=== PATIENT | female | born 1995 | race American Indian/Alaskan Native ===

== ENCOUNTER 2016-08-11 12:37 | Emergency (ER) | payer OTHER ==
--- NOTE | 2016-08-11 13:11 | Emergency Department Report ---
Chief Complaint: Abdominal Pain Stated Complaint: N/V CHEST PAIN/ Time Seen by Provider: 08/11/16 13:10 - ROS Review of Systems: As noted in HPI - Exam Vital Signs: Vital Signs 08/11/16 12:42 Temperature 98.7 F Pulse Rate 91 H Respiratory 16 Rate Blood Pressure 128/89 O2 Sat by Pulse 100 Oximetry MSE screening note: Focused history and physical exam performed. Due to findings the following was ordered: ED Medical Decision Making - Lab Data Result diagrams: 08/11/16 13:15 08/11/16 13:15 ED Disposition for MSE Condition: Stable Instructions: Abdominal Pain (ED)
[2016-08-11 13:34] LABS: Basophils % (Auto) 0.1 % (0.0-1.8); Eosinophils % (Auto) 0.6 % (0.0-4.3); Hematocrit 38.5 % (30.3-42.9); Hemoglobin 12.5 gm/dl (10.1-14.3); Mean Corpuscular HGB Conc 33 % (30-34); Mean Corpuscular Hemoglobin 28 pg (28-32); Mean Corpuscular Volume 85 fl (79-97); Platelet Count 378 K/mm3 (140-440); Red Blood Count 4.52 M/mm3 (3.65-5.03); Red Cell Distribution Width 16.3 % (13.2-15.2); White Blood Count 10.7 K/mm3 (4.5-11.0)
[2016-08-11 13:47] LABS: Alanine Aminotransferase 31 units/L (7-56); Albumin 4.5 g/dL (3.9-5); Albumin/Globulin Ratio 1.5 %; Alkaline Phosphatase 54 units/L (35-129); Anion Gap 17 mmol/L; Bilirubin,Total 0.2 mg/dL (0.1-1.2); Blood Urea Nitrogen 8 mg/dL (7-17); Calcium 8.8 mg/dL (8.4-10.2); Carbon Dioxide 26 mmol/L (22-30); Chloride 97.6 mmol/L (98-107); Glucose 95 mg/dL (65-100); Lipase 17 units/L (13-60); Potassium 3.7 mmol/L (3.6-5.0); Sodium 137 mmol/L (137-145); Total Protein 7.5 g/dL (6.3-8.2)
[2016-08-11 14:16] LABS: Bilirubin,Urine NEG (Negative); Blood,Urine NEG (Negative); Ketones,Urine NEG (Negative); Leukocyte Esterase,Urine NEG (Negative); Mucus,Urine FEW /HPF; Nitrite,Urine NEG (Negative); Protein,Urine <15 mg/dL mg/dL (Negative); Urobilinogen,Urine < 2.0 mg/dL (<2.0)
[2016-08-11 17:45] VITALS: BP 134/94
[2016-08-11] MEDS ORDERED: ZOFRAN ODT PO ONE (18:30)
[2016-08-11] MEDS ORDERED: MOTRIN PO ONE (18:33)
--- NOTE | 2016-08-11 18:34 | Emergency Department Report ---
Chief Complaint: Abdominal Pain Stated Complaint: N/V CHEST PAIN/ Time Seen by Provider: 08/11/16 18:29 - HPI History of Present Illness: Patient is a 21-year-old female who presents for nausea and vomiting after taking oxycodone early this morning at 7 AM. Patient states she ate before taking the medication. Patient states she had about 2 episodes of vomiting. She says she has intermittent abdominal throbbing. Patient denies fevers/chills/chest pains or shortness of breath/dyspnea/ headaches. - ROS Review of Systems: As noted in HPI - Exam Vital Signs: Vital Signs 08/11/16 08/11/16 12:42 17:43 Temperature 98.7 F 99.2 F Pulse Rate 91 H 123 H Respiratory 16 18 Rate Blood Pressure 128/89 Blood Pressure 134/94 [Left] O2 Sat by Pulse 100 100 Oximetry Physical Exam: GENERAL: Alert and oriented x3, no apparent distress, Normal Gait, atraumatic. HEAD: Head is normocephalic and a-traumatic. NECK: Supple. Non edematous, No carotid bruits. No lymphadenopathy or thyromegaly. LUNGS: Symetrical with respiration, No wheezing, no rales or crackles, CTAB. HEART: S1, S2 present, regular rate and rhythm without murmur, no rubs, no gallops. ABDOMEN: No organomegaly was noted,Positive bowel sounds, soft, and non- distended. . Nontender to palpation on all Quadrants, NO CVA tenderness. MSE screening note: Focused history and physical exam performed. Due to findings the following was ordered: ED Medical Decision Making - Lab Data Result diagrams: 08/11/16 13:15 08/11/16 13:15 - Medical Decision Making Patient alert and oriented 3. Vital signs stable. Patient is in no rest or acute distress. Exam normal. All labs within normal limits. Discussed case with MEDINA Scott patient will be seen over at [facility] for nausea and Motrin ordered for pain. ED Disposition for MSE Condition: Stable Instructions: Abdominal Pain (ED)
--- NOTE | 2016-08-16 13:53 | ED Elopement Review ---
ED Pt Elopement review - Results review Lab results: Laboratory Tests 08/11/16 08/11/16 08/11/16 13:15 13:15 13:15 WBC 10.7 RBC 4.52 Hgb 12.5 Hct 38.5 MCV 85 MCH 28 MCHC 33 RDW 16.3 H Plt Count 378 Lymph % (Auto) 10.3 L [place] % (Auto) 5.6 Eos % (Auto) 0.6 Baso % (Auto) 0.1 Lymph # 1.1 L [place] # 0.6 Eos # 0.1 Baso # 0.0 Seg Neutrophils % 83.4 H Seg Neutrophils # 8.9 H Sodium 137 Potassium 3.7 Chloride 97.6 L Carbon Dioxide 26 Anion Gap 17 BUN 8 Creatinine 0.4 L Estimated GFR > 60 BUN/Creatinine Ratio 20.00 Glucose 95 Calcium 8.8 Total Bilirubin 0.2 AST 33 ALT 31 Alkaline Phosphatase 54 Total Protein 7.5 Albumin 4.5 Albumin/Globulin Ratio 1.5 Amylase Lipase 17 HCG, Qual Negative Urine Color Urine Turbidity Urine pH Ur Specific [place] Urine Protein Urine Glucose (UA) Urine Ketones Urine Blood Urine Nitrite Urine Bilirubin Urine Urobilinogen Ur Leukocyte Esterase Urine WBC (Auto) Urine RBC (Auto) U Epithel Cells (Auto) Urine Mucus 08/11/16 08/11/16 13:15 Unknown WBC RBC Hgb Hct MCV MCH MCHC RDW Plt Count Lymph % (Auto) [place] % (Auto) Eos % (Auto) Baso % (Auto) Lymph # [place] # Eos # Baso # Seg Neutrophils % Seg Neutrophils # Sodium Potassium Chloride Carbon Dioxide Anion Gap BUN Creatinine Estimated GFR BUN/Creatinine Ratio Glucose Calcium Total Bilirubin AST ALT Alkaline Phosphatase Total Protein Albumin Albumin/Globulin Ratio Amylase 61 Lipase HCG, Qual Urine Color Yellow Urine Turbidity Clear Urine pH 7.0 Ur Specific [place] 1.021 Urine Protein <15 mg/dl Urine Glucose (UA) Neg Urine Ketones Neg Urine Blood Neg Urine Nitrite Neg Urine Bilirubin Neg Urine Urobilinogen < 2.0 Ur Leukocyte Esterase Neg Urine WBC (Auto) 2.0 Urine RBC (Auto) 1.0 U Epithel Cells (Auto) 2.0 Urine Mucus Few - Call Back decision Pt Call Back Decision: No action required
== END 2016-08-11 20:21 | disposition left against medical advice (07) ==
LOC: ED 12:37
DX: R11.2 Nausea with vomiting, unspecified (principal); R10.9 Unspecified abdominal pain; Z53.21 Procedure and treatment not carried out due to patient leaving prior to being seen by health care provider
CPT/HCPCS: 36415; 80053; 81001; 82150; 83690; 84703; 85025; Q0162

== ENCOUNTER 2017-04-30 10:37 | Emergency (ER) | payer OTHER ==
[2017-04-30 10:46] VITALS: BP 139/85
[2017-04-30 11:19] LABS: Basophils % (Auto) 0.2 % (0.0-1.8); Eosinophils % (Auto) 0.7 % (0.0-4.3); Hematocrit 38.1 % (30.3-42.9); Hemoglobin 12.3 gm/dl (10.1-14.3); Mean Corpuscular HGB Conc 32 % (30-34); Mean Corpuscular Hemoglobin 28 pg (28-32); Mean Corpuscular Volume 88 fl (79-97); Platelet Count 355 K/mm3 (140-440); Red Blood Count 4.33 M/mm3 (3.65-5.03); Red Cell Distribution Width 17.3 % (13.2-15.2); White Blood Count 7.7 K/mm3 (4.5-11.0)
[2017-04-30 12:37] LABS: Bacteria,Urine 1+ /HPF (Negative); Bilirubin,Urine NEG (Negative); Blood,Urine LG (Negative); Ketones,Urine NEG (Negative); Leukocyte Esterase,Urine MOD (Negative); Mucus,Urine 2+ /HPF; Nitrite,Urine NEG (Negative); Urobilinogen,Urine < 2.0 mg/dL (<2.0)
[2017-04-30 12:39] LABS: RBC,Urine > 182.0 /HPF (0.0-6.0); WBC,Urine > 182.0 /HPF (0.0-6.0)
== END 2017-04-30 20:55 | disposition left against medical advice (07) ==
LOC: ED 10:37
DX: O20.9 Hemorrhage in early pregnancy, unspecified (principal); Z3A.00 Weeks of gestation of pregnancy not specified; Z53.21 Procedure and treatment not carried out due to patient leaving prior to being seen by health care provider
CPT/HCPCS: 36415; 81001; 81025; 85025

== ENCOUNTER 2017-08-10 01:19 | Emergency (ER) | payer SELFPAY ==
[2017-08-10] MEDS ORDERED: ASPIRIN PO ONE (02:02)
[2017-08-10 02:31] LABS: Basophils % (Auto) 0.2 % (0.0-1.8); Eosinophils % (Auto) 0.2 % (0.0-4.3); Hematocrit 38.8 % (30.3-42.9); Hemoglobin 12.6 gm/dl (10.1-14.3); Lymphocytes # (Auto) 1.5 K/mm3 (1.2-5.4); Lymphocytes % (Auto) 18.2 % (13.4-35.0); Mean Corpuscular HGB Conc 33 % (30-34); Mean Corpuscular Hemoglobin 29 pg (28-32); Mean Corpuscular Volume 90 fl (79-97); Monocytes # (Auto) 0.3 K/mm3 (0.0-0.8); Monocytes % (Auto) 3.3 % (0.0-7.3); Platelet Count 399 K/mm3 (140-440); Red Cell Distribution Width 15.1 % (13.2-15.2)
[2017-08-10 02:49] LABS: BUN/Creatinine Ratio 14; Blood Urea Nitrogen 7 mg/dL (7-17); Calcium 9.7 mg/dL (8.4-10.2); Hemolysis Index 1
--- NOTE | 2017-08-10 08:33 | Emergency Department Report ---
HPI - General Chief Complaint: Chest Pain Time Seen by Provider: 08/10/17 08:17 - HPI HPI: Room 17 The patient is a 22-year-old female presenting with complaints of chest pain hematemesis and headache. The patient states her symptoms began last night at 18:00 with hematemesis, left chest pain, tachycardia and headache. Patient states her last bowel movement occurred approximately one week ago. Patient denies bright red blood per rectum or melena. Patient denies abdominal pain. Patient states her left chest pain has been constant and felt sharp in nature. However, patient currently denies chest pain. Patient does admit to dizziness. She denies dysuria or hematuria. Patient denies vaginal discharge. Patient cannot recall when last month she had her menses Location: [See above] Duration: [See above] Quality: Sharp Severity: Moderate Modifying factors: [see above] Context: [see above] Mode of transportation: [not driving] ED Past Medical Hx - Past Medical History Previous Medical History?: No - Surgical History Past Surgical History?: No - Family History Family history: no significant - Social History Smoking Status: Never Smoker (occasional) Substance Use Type: None (denies illicit drug use), Alcohol (occasional) - Medications Home Medications: Home Medications Medication Instructions Recorded Confirmed Last Taken Type Famotidine [Pepcid] 10 mg PO BID #20 tablet 08/19/13 08/11/16 Unknown Rx ALPRAZolam [Xanax TAB] 2 mg PO PRN PRN 08/11/16 08/11/16 08/10/16 History Butalb/Acetamin/Caff 50-325-40 2 tab PO Q8HR PRN #10 tablet 08/10/17 Unknown Rx [Fioricet] Famotidine [Pepcid] 20 mg PO BID #20 tablet 08/10/17 Unknown Rx Ondansetron [Zofran ODT TAB] 8 mg PO Q8HR #20 tab.rapdis 08/10/17 Unknown Rx Promethazine [Phenergan TAB] 25 mg PO Q6HR PRN #20 tab 08/10/17 Unknown Rx ED Review of Systems ROS: Stated complaint: VOMITING,LIGHTHEADED Other details as noted in HPI Constitutional: chills Cardiovascular: chest pain Gastrointestinal: hematemesis. denies: abdominal pain, melena, hematochezia Genitourinary: denies: dysuria, hematuria, discharge Neurological: headache Physical Exam - Physical Exam Vital Signs: Vital Signs 08/10/17 08/10/17 01:40 02:02 Temperature 98.3 F 98.3 F Pulse Rate 79 74 Respiratory 18 18 Rate Blood Pressure 122/81 Blood Pressure 122/81 [Right] O2 Sat by Pulse 100 100 Oximetry Physical Exam: GENERAL: The patient is well-developed well-nourished female sitting on stretcher not appearing to be in acute distress. [] HEENT: Normocephalic. Atraumatic. Extraocular motions are intact. Patient has moist mucous membranes. NECK: Supple. No meningitic signs are noted. Trachea midline CHEST/LUNGS: Clear to auscultation. There is no respiratory distress noted. HEART/CARDIOVASCULAR: Regular. There is no tachycardia. There is no gallop rub or murmur. ABDOMEN: Abdomen is soft, nontender. Patient has normal bowel sounds. There is no abdominal distention. SKIN: There is no rash. There is no edema. There is no diaphoresis. NEURO: The patient is awake, alert, and oriented. The patient is cooperative. The patient has no focal neurologic deficits. The patient has normal speech. Cranial nerves II-12 grossly intact, no drift MUSCULOSKELETAL: There is no evidence of acute injury. RECTAL: Patient refused ED Course Vital Signs 08/10/17 08/10/17 01:40 02:02 Temperature 98.3 F 98.3 F Pulse Rate 79 74 Respiratory 18 18 Rate Blood Pressure 122/81 Blood Pressure 122/81 [Right] O2 Sat by Pulse 100 100 Oximetry ED Medical Decision Making - Lab Data Result diagrams: 08/10/17 02:10 08/10/17 02:10 Laboratory Tests 08/10/17 08/10/17 08/10/17 02:10 02:10 04:56 WBC 8.0 RBC 4.30 Hgb 12.6 Hct 38.8 MCV 90 MCH 29 MCHC 33 RDW 15.1 Plt Count 399 Lymph % (Auto) 18.2 [place] % (Auto) 3.3 Eos % (Auto) 0.2 Baso % (Auto) 0.2 Lymph # 1.5 [place] # 0.3 Eos # 0.0 Baso # 0.0 Seg Neutrophils % 78.1 H Seg Neutrophils # 6.2 D-Dimer Sodium 139 Potassium 4.7 Chloride 99.3 Carbon Dioxide 25 Anion Gap 19 BUN 7 Creatinine 0.5 L Estimated GFR > 60 BUN/Creatinine Ratio 14 Glucose 92 Calcium 9.7 Troponin T < 0.010 < 0.010 TSH Free T4 HCG, Qual 08/10/17 08/10/17 08/10/17 09:27 09:27 09:37 WBC RBC Hgb Hct MCV MCH MCHC RDW Plt Count Lymph % (Auto) [place] % (Auto) Eos % (Auto) Baso % (Auto) Lymph # [place] # Eos # Baso # Seg Neutrophils % Seg Neutrophils # D-Dimer < 135 Sodium Potassium Chloride Carbon Dioxide Anion Gap BUN Creatinine Estimated GFR BUN/Creatinine Ratio Glucose Calcium Troponin T TSH 0.212 L Free T4 1.37 HCG, Qual Negative - EKG Data -: EKG Interpreted by Me EKG shows normal: sinus rhythm Rate: normal - EKG Data When compared to previous EKG there are: previous EKG unavailable Interpretation: other (no ischemic changes seen) 08/10/17 09:52 EKG #2 reveals normal sinus rhythm at 71 bpm. Early repolarization. No ischemic changes seen. - Radiology Data Radiology results: report reviewed (CT head), image reviewed (CT head, chest x- ray) interpreted by me: Chest x-ray-no focal infiltrates, no pneumothorax CT HEAD WITHOUT CONTRAST: HISTORY: Headache. TECHNIQUE: Sequential 2.5mm CT images. COMPARISON: none. FINDINGS: Cerebral Parenchyma: Within normal limits. Cerebellum: Within normal limits. Brainstem: Within normal limits. Ventricles: Normal. Sella: Normal. Extra-axial spaces: Normal. Basal Cisterns: Normal. Intracranial Hemorrhage: None. Midline Shift: None. Calvarium: Normal. Sinuses: Normal. Mastoid Air Cells: Normal. Visualized Orbits: Normal. IMPRESSION: Cranial CT scan within normal limits. Transcribed By: TTR Dictated By: CYNDI BAUM JR, MD Electronically Authenticated By: CYNDI BAUM JR, MD Signed Date/Time: 08/10/171116 DD/ 16 TD/TT: 08/10/171116 - Differential Diagnosis gastritis, PE, ACS, headache, Critical care attestation.: If time is entered above; I have spent that time in minutes in the direct care of this critically ill patient, excluding procedure time. ED Disposition Clinical Impression: Headache, Atypical chest pain, Vomiting Disposition: DC-01 TO HOME OR SELFCARE Is pt being admited?: No Does the pt Need Aspirin: No Condition: Stable Instructions: Chest Pain (ED) Additional Instructions: Return to the emergency department immediately should you develop worsening symptoms, fever, inability to tolerate food or liquid or any other concerns. Prescriptions: Butalb/Acetamin/Caff 50-325-40 [Fioricet] 2 tab PO Q8HR PRN #10 tablet PRN Reason: Headache Famotidine [Pepcid] 20 mg PO BID #20 tablet Ondansetron [Zofran ODT TAB] 8 mg PO Q8HR #20 tab.rapdis Promethazine [Phenergan TAB] 25 mg PO Q6HR PRN #20 tab PRN Reason: Nausea Referrals: FRANDY SANDERS MD [Staff Physician] - 3-5 Days [facility] [Outside] - 3-5 Days Time of Disposition: 11:37
[2017-08-10 11:11] LABS: Free T4 (Free Thyroxine) 1.37 ng/dL (0.76-1.46)
--- NOTE | 2017-08-10 11:23 | Cat Scan Report ---
CT HEAD WITHOUT CONTRAST: HISTORY: Headache. TECHNIQUE: Sequential 2.5mm CT images. COMPARISON: none. FINDINGS: Cerebral Parenchyma: Within normal limits. Cerebellum: Within normal limits. Brainstem: Within normal limits. Ventricles: Normal. Sella: Normal. Extra-axial spaces: Normal. Basal Cisterns: Normal. Intracranial Hemorrhage: None. Midline Shift: None. Calvarium: Normal. Sinuses: Normal. Mastoid Air Cells: Normal. Visualized Orbits: Normal. IMPRESSION: Cranial CT scan within normal limits.
[2017-08-10 11:58] VITALS: BP 116/78
--- NOTE | 2017-08-10 12:22 | XRay Report ---
ROUTINE CHEST, TWO VIEWS: HISTORY: chest pain. The trachea, heart, mediastinal contour, lung orantes and bony thorax are unremarkable. IMPRESSION: Unremarkable chest x-ray.
== END 2017-08-10 11:57 | disposition home or self-care (01) ==
LOC: ED 01:19
DX: R07.89 Other chest pain (principal); R51 Headache; K92.0 Hematemesis; R00.0 Tachycardia, unspecified
CPT/HCPCS: 36415; 70450; 71046; 80048; 84439; 84443; 84484; 84703; 85025; 85379; 93005; 93010

== ENCOUNTER 2019-11-25 19:26 | Inpatient (IN) | payer MEDICAID ==
[2019-11-25] MEDS ORDERED: LACTATED RINGERS 1,000 ML ONE (19:54)
[2019-11-25] MEDS ORDERED: LACTATED RINGERS 500 ML IV ONE ×2 (20:03→20:38)
[2019-11-25] MEDS ORDERED: BETAMET ACET/BETAMET NA PH 6 MG/ML INJ 5 ML MDV IM ONE (20:35)
[2019-11-25] MEDS ORDERED: AMPICILLIN/NS 2 GM/100 ML 2 GM/100 ML BAG IV ONE (20:38)
[2019-11-25] MEDS ORDERED: SODIUM CHLORIDE NASAL SPRAY 44ML NS PRN (20:38)
[2019-11-25] MEDS ORDERED: ONDANSETRON 4 MG/2 ML INJ IV PRN (20:38)
[2019-11-25] MEDS ORDERED: DOCUSATE SODIUM 100 MG CAP PO PRN (20:38)
[2019-11-25] MEDS ORDERED: ACETAMINOPHEN 325 MG TAB PO PRN (20:38)
[2019-11-25] MEDS ORDERED: CALCIUM GLUCONATE 1000 MG/10 ML INJ IV ONE (20:45)
[2019-11-25] MEDS ORDERED: MAGNESIUM SULFATE 4 GM/100 ML BAG IV ONE (20:45)
[2019-11-25] MEDS ORDERED: LACTATED RINGERS 1,000 ML IV SCH ×2 (21:00)
[2019-11-25] MEDS ORDERED: MAGNESIUM SULFATE 40GM/1000ML 40 GM/1,000 ML BAG IV SCH (21:00)
[2019-11-25] MEDS ORDERED: BETAMET ACET/BETAMET NA PH 6 MG/ML INJ 5 ML MDV IM SCH (21:00)
[2019-11-25 21:28] LABS: Basophils % (Auto) 0.3 % (0.0-1.8); Eosinophils # (Auto) 0.1 K/mm3 (0.0-0.4); Eosinophils % (Auto) 1.2 % (0.0-4.3); Lymphocytes # (Auto) 2.5 K/mm3 (1.2-5.4); Lymphocytes % (Auto) 33.7 % (13.4-35.0); Monocytes # (Auto) 0.5 K/mm3 (0.0-0.8); Monocytes % (Auto) 7.1 % (0.0-7.3)
[2019-11-25 21:34] LABS: Hematocrit 30.4 % (30.3-42.9); Mean Corpuscular HGB Conc 33 % (30-34); Mean Corpuscular Volume 86 fl (79-97); Platelet Count 346 K/mm3 (140-440); Red Blood Count 3.54 M/mm3 (3.65-5.03); Red Cell Distribution Width 14.3 % (13.2-15.2)
[2019-11-25 21:35] LABS: Bilirubin,Urine NEG (Negative); Blood,Urine NEG (Negative); Color,Urine Colorless (Yellow); Protein,Urine <15 mg/dL mg/dL (Negative); RBC,Urine < 1.0 /HPF (0.0-6.0); Urobilinogen,Urine < 2.0 mg/dL (<2.0)
[2019-11-25 21:46] LABS: Amphetamine Screen,Urine PRESUMPTIVE NEGATIVE; Benzodiazepines Screen,Urine PRESUMPTIVE NEGATIVE; Cannabinoid Screen,Urine PRESUMPTIVE NEGATIVE; Cocaine Screen,Urine PRESUMPTIVE NEGATIVE; Methadone Screen,Urine PRESUMPTIVE NEGATIVE; Opiate Screen,Urine PRESUMPTIVE NEGATIVE
--- NOTE | 2019-11-25 21:55 | Ultrasound Report ---
OBSTETRIC ULTRASOUND INDICATION: Maternal gestational hypertension COMPARISON: No prior relevant imaging studies are available for comparison. TECHNIQUE: Transabdominal imaging was performed. FINDINGS: Single viable intrauterine is identified. lie: Cephalic. Heart rate: 141 bpm. measurements are as follows: Biparietal diameter 7.3 cm, 29 weeks 1 day Head circumference 27.9 cm, 30 weeks 4 days Abdominal circumference 24.2 cm, 28 weeks 3 days Femur length 5.4 cm, 28 weeks 5 days Amniotic fluid index is 16.1cm, within normal limits. No placental abnormalities are seen. CONCLUSION: Single viable intrauterine currently in vertex position with sonographic gestational age of 29 weeks, 2 days. Amniotic fluid index is within normal limits. Signer Name: Robel Jacob MD Signed: 11/25/2019 9:50 PM Workstation Name: [id number]
[2019-11-25] MEDS: fentaNYL 100 MCG/2 ML INJ IV PRN (22:50)
[2019-11-26] MEDS ORDERED: AMPICILLIN/NS 1 GM/50 ML 1 GM/50 ML BAG IV SCH (00:40)
[2019-11-26] MEDS: fentaNYL 100 MCG/2 ML INJ IV PRN (02:27)
--- NOTE | 2019-11-26 02:43 | History and Physical Report ---
History of Present Illness Date of examination: 11/26/19 Date of admission: 11/25/19 20:39 Chief complaint: contractions History of present illness: Pt is a 24 year old female LMP unsure at unknown who presents with contractions for 1.5 wks that became more intense and more regular tonight. She denies vaginal bleeding or leakage of fluid. She has a h/o three deliveries "one month early." She is GBS unknown. 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 and D ) Family/Genetic History: none Social history: no significant social history - Obstetrical History : 4 Para: 3 Hx # Term Pregnancies: 0 Number of Pregnancies: 3 Spontaneous Abortions: 0 Induced : 0 Number of Living Children: 3 Medications and Allergies Allergies Allergy/AdvReac Type Severity Reaction Status Date / Time cinnamon Allergy Anaphylaxis Verified 11/25/19 20:03 Home Medications Medication Instructions Recorded Confirmed Last Taken Type Famotidine [Pepcid] 10 mg PO BID #20 tablet 08/19/13 08/11/16 Unknown Rx ALPRAZolam [Xanax TAB] 2 mg PO PRN PRN 08/11/16 08/11/16 08/10/16 History Butalb/Acetamin/Caff 50-325-40 2 tab PO Q8HR PRN #10 tablet 08/10/17 Unknown Rx [Fioricet] Famotidine [Pepcid] 20 mg PO BID #20 tablet 08/10/17 Unknown Rx Ondansetron [Zofran ODT TAB] 8 mg PO Q8HR #20 tab.rapdis 08/10/17 Unknown Rx Promethazine [Phenergan TAB] 25 mg PO Q6HR PRN #20 tab 08/10/17 Unknown Rx Active Meds: Active Medications Acetaminophen (Tylenol) 650 mg PO Q4H PRN PRN Reason: Pain MILD(1-3)/Fever >100.5/OTOOLE Betamethasone Acet/Betameth SodPhos ([place] Soluspan) 12 mg IM Q24HR MU Stop: 11/26/19 10:01 Docusate Sodium (Colace) 100 mg PO Q12H PRN PRN Reason: Constipation Fentanyl (Sublimaze) 100 mcg IV Q2HR PRN PRN Reason: Labor Pain Last Admin: 11/26/19 02:27 Dose: 100 mcg Documented by: Lactated Ringer's (Lactated Ringers) 1,000 mls @ 125 mls/hr IV DIRECT MU Last Admin: 11/25/19 22:48 Dose: 125 mls/hr Documented by: Ampicillin Sodium (Ampicillin/Ns 1 Gm/50 Ml) 1 gm in 50 mls @ 100 mls/hr IV Q4HR MU; Protocol Lactated Ringer's (Lactated Ringers) 1,000 mls @ 125 mls/hr IV DIRECT MU Magnesium Sulfate (Magnesium Sulfate 40gm/1000ml) 40 gm in 1,000 mls @ 50 mls/hr IV DIRECT MU Last Admin: 11/25/19 23:10 Dose: 2 gm/hr, 50 mls/hr Documented by: Multivitamins/Iron/Calcium ( Vitamin) 1 each PO QDAY MU Ondansetron HCl (Zofran) 4 mg IV Q6H PRN PRN Reason: Nausea And Vomiting Sodium Chloride (Deep Sea) 2 spray NS Q4H PRN PRN Reason: Congestion Review of Systems All systems: negative - Vital Signs Vital signs: Vital Signs Pulse BP 93 H 106/60 11/25/19 19:42 11/25/19 19:42 Temp Pulse Resp BP Pulse Ox 97.8 F 96 H 18 113/59 98 11/26/19 00:20 11/26/19 02:33 11/26/19 02:27 11/26/19 02:33 11/26/19 00:39 - Physical Exam Abdomen: Positive: soft (gravid ) Uterus: Positive: enlarged (gravid ) Extremities: Positive: normal - Obstetrical FHR: auscultation normal Uterine Contraction Monitor Mode: External Cervical Dilatation: 5.5 Cervical Effacement Percentage: 70 station: -1 Uterine Contraction Pattern: Regular Uterine Tone Measurement Phase: Resting Uterine Contraction Intensity: Strong/Firm Results Result Diagrams: 11/25/19 20:30 Abnormal lab results 11/25/19 Range/Units 20:30 RBC 3.54 L (3.65-5.03) M/mm3 Hgb 10.0 L (10.1-14.3) gm/dl All other labs normal. Assessment and Plan A: Uncertain Gestational Age Labor H/o 3 Deliveries GBS unknown P: Admit to antepartum service Magnesium sulfate for seizure prophylaxis and neuroprotection GBS prophylaxis Betamethasone course Closely monitor clinical status
[2019-11-26] MEDS ORDERED: TERBUTALINE 1 MG/1 ML INJ IVP PRN (03:02)
[2019-11-26] MEDS ORDERED: MINERAL OIL 30 ML ORAL LIQD PO PRN (03:02)
[2019-11-26] MEDS ORDERED: ePHEDrine SULFATE 50 MG/1 ML INJ IV PRN ×2 (03:02→03:34)
[2019-11-26] MEDS ORDERED: LIDOCAINE (2%) 20 MG/1 ML VIAL 20 ML MDV INFILTRATI ONE (03:02)
[2019-11-26] MEDS ORDERED: TERBUTALINE 1 MG/1 ML INJ SUB-Q PRN (03:02)
--- NOTE | 2019-11-26 03:02 | Event Note ---
Date: 11/26/19 Pt's partner called out secondary to blood on her pad. Cervix checked: /- . Continue routine intrapartum care. NICU aware.
[2019-11-26] MEDS ORDERED: DEXMEDETOMIDINE 200 MCG/2 ML VIAL IV ONE (03:15)
[2019-11-26] MEDS ORDERED: NALOXONE 2 MG/2 ML INJ IV PRN (03:34)
--- NOTE | 2019-11-26 03:35 | Anesthesia Consultation ---
Anesthesia Consult and Med Hx Date of service: 11/26/19 - Airway Anesthetic Teeth Evaluation: Good ROM Head & Neck: Adequate Mental/Hyoid Distance: Adequate Mallampati Class: Class II Intubation Access Assessment: Probably Good - Pulmonary Exam CTA: Yes - Cardiac Exam Cardiac Exam: RRR - Pre-Operative Health Status ASA Pre-Surgery Classification: ASA3 Proposed Anesthetic Plan: Epidural - Pulmonary Hx Asthma: No COPD: No - Cardiovascular System Hx Hypertension: Yes - Central Nervous System Hx Seizures: No Hx Psychiatric Problems: No - Endocrine Hx Renal Disease: No Hx End Stage Renal Disease: No Hx Hypothyroidism: No Hx Hyperthyroidism: No - Hematic Hx Anemia: No Hx Sickle Cell Disease: No - Other Systems Hx Alcohol Use: No
[2019-11-26] MEDS ORDERED: LACTATED RINGERS 1,000 ML IV SCH (04:00)
[2019-11-26] MEDS ORDERED: fentaNYL-BUPIV 2 MCG/ML-0.125% 200 MCG/100 ML BAG EPIDURAL SCH (04:00)
[2019-11-26] MEDS ORDERED: OXYTOCIN 20 UNIT/1000ML DRIP 20 UNITS/1,000 ML BAG IV SCH ×2 (04:00→09:00)
[2019-11-26] MEDS ORDERED: METHYLERGONOVINE MALEATE 0.2 MG/ML VIAL IM ONE (04:03)
[2019-11-26] MEDS ORDERED: miSOPROStol 200 MCG TAB ONE (04:04)
[2019-11-26] MEDS ORDERED: OXYTOCIN DRIP 30,000 MILLIUNITS/500 ML BAG IV ONE (04:20)
--- NOTE | 2019-11-26 05:15 | Procedure Note ---
OB Delivery Note - Delivery Date of Delivery: 11/26/19 Surgeon: ZELALEM VELA Estimated blood loss: 500cc - Vaginal Delivery presentation: vertex Delivery position: OP Intrapartum events: no care, labor-<37 weeks, decreased FHT variability Delivery induction: none Delivery augmentation: rupture of membranes Delivery monitor: external FHT, external uterine Route of delivery: Delivery placenta: spontaneous Delivery cord: 3 umbilical vessels Episiotomy: none Delivery laceration: none Anesthesia: epidural - A at 1 minute: 8 at 5 minutes: 9 Infant Gender: Male (1400g (3lb 1.4 oz) @ 0454 am)
[2019-11-26] MEDS ORDERED: LANOLIN/ZINC/DIMETHICONE (LANSINOH) 7 GM TP PRN ×2 (08:25→09:00)
[2019-11-26] MEDS ORDERED: WITCH HAZEL/ GLYCERIN PAD TP PRN (08:30)
[2019-11-26] MEDS ORDERED: ACETAMINOPHEN 325 MG TAB PO PRN (08:30)
[2019-11-26] MEDS ORDERED: BENZOCAINE/MENTHOL 20/0.5% TOP SPRAY 56 GM TP PRN (08:30)
[2019-11-26] MEDS ORDERED: diphenhydrAMINE 25 MG CAP PO PRN (08:30)
[2019-11-26] MEDS ORDERED: PROMETHAZINE 25 MG TAB PO PRN (09:00)
[2019-11-26] MEDS ORDERED: PROMETHAZINE 25 MG RECT SUPP PR PRN (09:00)
[2019-11-26] MEDS ORDERED: ONDANSETRON 4 MG/2 ML INJ IV PRN (09:00)
[2019-11-26] MEDS ORDERED: PRENATAL VIT27-FE FUMARATE-FOLIC ACID VIT TAB PO SCH (10:00)
[2019-11-26] MEDS: IBUPROFEN 600 MG TAB PO SCH (11:15)
[2019-11-26] MEDS: FERROUS SULFATE 325 MG TAB PO SCH ×2 (11:20→21:07)
[2019-11-26 17:46] LABS: Hematocrit 29.6 % (30.3-42.9); Hemoglobin 9.7 gm/dl (10.1-14.3)
[2019-11-26] MEDS: HYDROcodone/ACETAMINOPHEN 5-325 MG TAB PO PRN ×2 (18:02→23:43)
[2019-11-26] MEDS ORDERED: MAGNESIUM HYDROXIDE (MOM) ORAL LIQD UDC PO PRN (22:00)
[2019-11-27] MEDS: HYDROcodone/ACETAMINOPHEN 5-325 MG TAB PO PRN ×4 (05:17→23:51)
[2019-11-27] MEDS: FERROUS SULFATE 325 MG TAB PO SCH ×2 (10:01→22:36)
[2019-11-27] MEDS ORDERED: DIPHtheria,PERTUSSIS(ACELL),TETANUS VACCINE/PF 0.5 ML VIAL IM ONE (12:00)
[2019-11-27] MEDS ORDERED: MEASLES, MUMPS & RUBELLA 12,500 UNIT/0.5 ML VACCINE SUB-Q ONE (12:00)
[2019-11-27] MEDS: IBUPROFEN 600 MG TAB PO SCH ×2 (12:01→17:42)
--- NOTE | 2019-11-27 13:44 | Progress Note ---
Assessment and Plan A: PPD#1 s/p at 30 wks No care Right vulvar pain, previous Bartholin gland cyst P: Routine care Clindamycin course Anticipate discharge tomorrow Subjective - Subjective Date of service: 11/27/19 Principal diagnosis: s/p delivery, no care Interval history: Today pt reports that Motrin caused immediate emesis and she does not want anymore of that medication. She cannot recall if she took this medicine with prior deliveries and if she had a similar reaction. She report minimal lochia. She also reports right vulvar pain that was present during her and a cyst that she had incised and drained in the same area previously. She reports that her pain extends down into her thigh and up into her lower stomach on the right side. 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 Patient reports: appetite normal, voiding normally, pain well controlled, ambulating normally, no dizzy ambulation : in NICU Objective - Vital Signs Latest vital signs: Vital Signs Temp Pulse Resp BP BP Pulse Ox 11/27/19 07:43 98.0 F 64 12 99/49 98 11/27/19 00:44 97.8 F 63 16 109/67 98 11/26/19 23:43 18 11/26/19 18:02 20 11/26/19 14:54 97.3 F L 79 18 106/77 100 Intake and Output 11/26/19 11/27/19 11/27/19 22:59 06:59 14:59 Intake Total 438 067 5378 Output Total 500 Balance -318 416 3171 Intake: Oral 2080 Intake, Free Water 360 360 Output: Urine 500 Void 500 Other: Total, Intake Amount 1040 Total, Output Amount 500 Voiding Method Toilet # Voids Void 1 2 - Exam Abdomen: Present: soft Vulva: right: normal (No cyst visualized or palpated in right labum majorum ) Uterus: Present: fundal height below umbilicus Extremities: Present: normal - Labs Labs: Abnormal lab results 11/26/19 Range/Units 17:14 Hgb 9.7 L (10.1-14.3) gm/dl Hct 29.6 L (30.3-42.9) %
--- NOTE | 2019-11-27 13:49 | Discharge Summary ---
Providers - Providers Date of Admission: 11/25/19 20:39 Date of discharge: 11/28/19 Attending physician: ZELALEM DISLA 11/26/19 02:31 Consult to Physician [CONS] Routine Comment: Consulting Provider: DHARMESH HUERTA Physician Instructions: Reason For Exam: labor, 29 wks Primary care physician: [employer] ATTENDANT Hospitalization Reason for admission: labor Delivery: Procedure details: Please see delivery note. Episiotomy: none Laceration: none Other procedures: none Discharge diagnosis: delivery [place] baby: male Hospital course: Pt was admitted in labor. She received betamethasone and IV Magnesium for tocolysis and neuroprotection. She went on to have a spontaneous vaginal delivery which she tolerated well. Her course was uncomplicated and she met discharge criteria on PPD#2. She will follow up in the office in [address] Disla. Condition at discharge: Stable Disposition: DC-01 TO HOME OR SELFCARE - Discharge Diagnoses (1) labor in third trimester with delivery Status: Acute Qualifiers: Fetus number: single or unspecified fetus Qualified Code(s): O60.14X0 - labor third trimester with delivery third trimester, not applicable or unspecified (2) No care in current Status: Acute Qualifiers: Trimester: third trimester Qualified Code(s): O09.33 - Supervision of with insufficient care, third trimester (3) Acute on chronic anemia Status: Acute Plan - Discharge Medications Prescriptions: Clindamycin [Clindamycin CAP] 300 mg PO Q6H #28 capsule Ferrous Sulfate [Feosol 325 MG tab] 325 mg PO BID #60 tablet HYDROcodone/APAP 5-325 [Ira 5/325] 1 each PO Q6HR PRN #30 tablet PRN Reason: Pain - Provider Discharge Summary Activity: routine, no sex for 6 weeks, no heavy lifting 4 weeks, no strenuous exercise Diet: routine Instructions: routine Additional instructions: [] Smoking cessation referral if applicable(refer to patient education folder for contact #) [] Refer to [facility]'s [facility] Booklet Call your doctor immediately for: * Fever > 100.5 * Heavy vaginal bleeding ( >1 pad per hour) * Severe persistent headache * Shortness of breath * Reddened, hot, painful area to leg or breast * Drainage or odor from incision. * Keep incision clean and dry at all times and follow doctor's instructions regarding bathing/showering - Follow up plan Follow up: PRIMARY CARE, [Primary Care Provider] - 7 Days ZELALEM DISLA MD [Staff Physician] - 14 Days (Please call to schedule appt ) Forms: Work/School Release Form
--- NOTE | 2019-11-27 19:05 | Post Anesthesia Evaluation ---
- Post Anesthesia Evaluation Patient Participated: Yes Airway Patent: Yes Stable Respiratory Function: Yes Nausea/Vomiting: No Temp > 96.8F: Yes Pain Manageable: Yes Adequeate Hydration: Yes Anesthesia Complications: No Block Receding Appropriately: Yes
[2019-11-28] MEDS: IBUPROFEN 600 MG TAB PO SCH ×2 (06:33→11:40)
[2019-11-28] MEDS: FERROUS SULFATE 325 MG TAB PO SCH (08:42)
[2019-11-28] MEDS: HYDROcodone/ACETAMINOPHEN 5-325 MG TAB PO PRN ×2 (08:42→15:18)
[2019-11-29 11:29] VITALS: BP 105/63
== END 2019-11-28 16:35 | disposition home or self-care (01) | DRG 775 ==
LOC: TRG 19:26 → APU 19:38 → TRG 20:38 → OBSVTOIN 20:39 → LD 20:39 → OB 11-26 08:24
PROVIDERS: ADMIT Obstetrics & Gynecology; ATTEND Obstetrics & Gynecology
PROC: 10E0XZZ Delivery of Products of Conception, External Approach (ICD-10-PCS; principal; 2019-11-26)
PROC: 10907ZC Drainage of Amniotic Fluid, Therapeutic from Products of Conception, Via Natural or Artificial Opening (ICD-10-PCS; 2019-11-26)
PROC: 3E0R3BZ Introduction of Anesthetic Agent into Spinal Canal, Percutaneous Approach (ICD-10-PCS; 2019-11-26)
PROC: 00HU33Z Insertion of Infusion Device into Spinal Canal, Percutaneous Approach (ICD-10-PCS; 2019-11-26)
PROC: 3E0234Z Introduction of Serum, Toxoid and Vaccine into Muscle, Percutaneous Approach (ICD-10-PCS; 2019-11-27)
PROC: 3E0134Z Introduction of Serum, Toxoid and Vaccine into Subcutaneous Tissue, Percutaneous Approach (ICD-10-PCS; 2019-11-27)
DX: O60.14X0 Preterm labor third trimester with preterm delivery third trimester, not applicable or unspecified (principal); Z37.0 Single live birth; O76 Abnormality in fetal heart rate and rhythm complicating labor and delivery; D64.9 Anemia, unspecified; Z3A.30 30 weeks gestation of pregnancy; Z23 Encounter for immunization; Z88.8 Allergy status to other drugs, medicaments and biological substances; O62.2 Other uterine inertia; O99.02 Anemia complicating childbirth; N75.0 Cyst of Bartholin's gland; O26.893 Other specified pregnancy related conditions, third trimester
CPT/HCPCS: 36415; 76805; 76816; 80307; 81001; 85014; 85018; 85025; 86592; 86706; 86762; 86850; 86900; 86901; 87806; 88307; G0378; A6250; J0290; J0702; J2210; J2590; J3010; J3475; J3490; J7120

== ENCOUNTER 2021-04-02 09:09 | Emergency (ER) | payer MEDICAID ==
[2021-04-02] MEDS ORDERED: METOCLOPRAMIDE 10 MG/2 ML INJ IV ONE (10:27)
[2021-04-02] MEDS ORDERED: diphenhydrAMINE 50 MG/ML VIAL IV ONE (10:27)
[2021-04-02] MEDS ORDERED: SODIUM CHLORIDE 0.9% 1000 ML 1,000 ML IV ONE (10:27)
[2021-04-02] MEDS ORDERED: FAMOTIDINE 20 MG/2 ML INJ IV ONE (10:27)
--- NOTE | 2021-04-02 10:32 | Emergency Department Report ---
ED General Adult HPI - General Chief complaint: Nausea/Vomiting/Diarrhea Stated complaint: N/V Time Seen by Provider: 04/02/21 10:13 Source: patient Mode of arrival: Ambulatory Limitations: No Limitations - History of Present Illness Initial comments: 26-year-old female patient presents with complaints of nausea and vomiting x3 days. She states she was seen at an urgent care yesterday and given IV Zofran, GI cocktail, and discharged home with oral Zofran. She states the oral Zofran is not helping with her symptoms. She denies any hematemesis/coffee-ground emesis, melena/hematochezia, diarrhea, fever/chills/sweats, urinary symptoms, cough, shortness of breath, or chest pain. Past medical history includes a uterine tumor per patient, she states she is unsure if it is cancerous or benign. She is not currently following with a primary care provider. She also denies any alcohol use or history of PUD/GERD - Related Data Home Medications Medication Instructions Recorded Confirmed Last Taken ALPRAZolam [Xanax TAB] 2 mg PO PRN PRN 08/11/16 08/11/16 08/10/16 Previous Rx's Medication Instructions Recorded Last Taken Type Famotidine [Pepcid] 10 mg PO BID #20 tablet 08/19/13 Unknown Rx Butalb/Acetamin/Caff 50-325-40 2 tab PO Q8HR PRN #10 tablet 08/10/17 Unknown Rx [Fioricet] Famotidine [Pepcid] 20 mg PO BID #20 tablet 08/10/17 Unknown Rx Ondansetron [Zofran ODT TAB] 8 mg PO Q8HR #20 tab.rapdis 08/10/17 Unknown Rx Promethazine [Phenergan TAB] 25 mg PO Q6HR PRN #20 tab 08/10/17 Unknown Rx Clindamycin [Clindamycin CAP] 300 mg PO Q6H #28 capsule 11/27/19 Unknown Rx Ferrous Sulfate [Feosol 325 MG tab] 325 mg PO BID #60 tablet 11/27/19 Unknown Rx HYDROcodone/APAP 5-325 [Pioneer 1 each PO Q6HR PRN #30 tablet 11/27/19 Unknown Rx 5/325] Promethazine HCl [Promethazine TAB] 12.5 mg PO [id number] PRN #8 tab 09/14/21 Unknown Rx Allergies Allergy/AdvReac Type Severity Reaction Status Date / Time cinnamon Allergy Anaphylaxis Verified 11/25/19 20:03 ED Review of Systems ROS: Stated complaint: N/V Other details as noted in HPI Constitutional: denies: chills, diaphoresis, fever, malaise, weakness Respiratory: denies: cough, shortness of breath Cardiovascular: denies: chest pain Gastrointestinal: abdominal pain, nausea, vomiting. denies: diarrhea, constipation, hematemesis, melena Genitourinary: denies: urgency, dysuria, frequency, hematuria Skin: denies: rash, lesions Neurological: denies: headache Hematological/Lymphatic: denies: swollen glands ED Past Medical Hx - Past Medical History Previous Medical History?: Yes Hx Hypertension: Yes Hx Diabetes: No Hx Deep Vein Thrombosis: No Hx Renal Disease: No Hx Sickle Cell Disease: No Hx Seizures: No Hx Asthma: No Hx COPD: No Hx HIV: No - Social History Smoking Status: Unknown if ever smoked Substance Use Type: None - Medications Home Medications: Home Medications Medication Instructions Recorded Confirmed Last Taken Type Famotidine [Pepcid] 10 mg PO BID #20 tablet 08/19/13 08/11/16 Unknown Rx ALPRAZolam [Xanax TAB] 2 mg PO PRN PRN 08/11/16 08/11/16 08/10/16 History Butalb/Acetamin/Caff 50-325-40 2 tab PO Q8HR PRN #10 tablet 08/10/17 Unknown Rx [Fioricet] Famotidine [Pepcid] 20 mg PO BID #20 tablet 08/10/17 Unknown Rx Ondansetron [Zofran ODT TAB] 8 mg PO Q8HR #20 tab.rapdis 08/10/17 Unknown Rx Promethazine [Phenergan TAB] 25 mg PO Q6HR PRN #20 tab 08/10/17 Unknown Rx Clindamycin [Clindamycin CAP] 300 mg PO Q6H #28 capsule 11/27/19 Unknown Rx Ferrous Sulfate [Feosol 325 MG tab] 325 mg PO BID #60 tablet 11/27/19 Unknown Rx HYDROcodone/APAP 5-325 [Pioneer 1 each PO Q6HR PRN #30 tablet 11/27/19 Unknown Rx 5/325] Promethazine HCl [Promethazine TAB] 12.5 mg PO [id number] PRN #8 tab 04/02/21 Unknown Rx ED Physical Exam - General Limitations: No Limitations General appearance: alert, in no apparent distress - Head Head exam: Present: atraumatic, normocephalic - Eye Eye exam: Present: normal appearance. Absent: scleral icterus - Respiratory Respiratory exam: Present: normal lung sounds bilaterally. Absent: respiratory distress - Cardiovascular Cardiovascular Exam: Present: regular rate, normal rhythm. Absent: systolic murmur, diastolic murmur, rubs, gallop - GI/Abdominal GI/Abdominal exam: Present: soft, tenderness (Epigastric), normal bowel sounds. Absent: distended, guarding, rebound, rigid, organomegaly, mass - Back Exam Back exam: Present: full ROM - Neurological Exam Neurological exam: Present: alert, oriented X3 - Psychiatric Psychiatric exam: Present: normal affect, normal mood - Skin Skin exam: Present: warm, dry, intact, normal color. Absent: rash ED Course Vital Signs 04/02/21 09:13 Temperature 98.2 F Pulse Rate 90 Respiratory 16 Rate Blood Pressure 136/86 [Right] O2 Sat by Pulse 98 Oximetry - Reevaluation(s) Reevaluation #1: 04/02/21 10:32 04/02/21 14:33 ED Medical Decision Making - Lab Data Result diagrams: 04/02/21 10:32 04/02/21 10:32 Lab Results 04/02/21 04/02/21 04/02/21 Range/Units 10:32 10:32 10:32 WBC 13.0 H (4.5-11.0) K/mm3 RBC 4.85 (3.65-5.03) M/mm3 Hgb 13.5 (10.1-14.3) gm/dl Hct 41.4 (30.3-42.9) % MCV 85 (79-97) fl MCH 28 (28-32) pg MCHC 33 (30-34) % RDW 15.7 H (13.2-15.2) % Plt Count 537 H (140-440) K/mm3 Lymph % (Auto) 14.6 (13.4-35.0) % [place] % (Auto) 4.4 (0.0-7.3) % Eos % (Auto) 0.0 (0.0-4.3) % Baso % (Auto) 0.1 (0.0-1.8) % Lymph # (Auto) 1.9 (1.2-5.4) K/mm3 [place] # (Auto) 0.6 (0.0-0.8) K/mm3 Eos # (Auto) 0.0 (0.0-0.4) K/mm3 Baso # (Auto) 0.0 (0.0-0.1) K/mm3 Seg Neutrophils % 80.9 H (40.0-70.0) % Seg Neutrophils # 10.5 H (1.8-7.7) K/mm3 Sodium 143 (137-145) mmol/L Potassium 4.3 (3.6-5.0) mmol/L Chloride 103.4 (98-107) mmol/L Carbon Dioxide 29 (22-30) mmol/L Anion Gap 15 mmol/L BUN 14 (7-17) mg/dL Creatinine 0.5 L (0.6-1.2) mg/dL Estimated GFR > 60 ml/min BUN/Creatinine Ratio 28 % Glucose 108 H (65-100) mg/dL Calcium 10.1 (8.4-10.2) mg/dL Total Bilirubin 0.70 (0.1-1.2) mg/dL AST 10 (5-40) units/L ALT 6 L (7-56) units/L Alkaline Phosphatase 57 (35-129) units/L Total Protein 8.8 H (6.3-8.2) g/dL Albumin 5.0 (3.9-5) g/dL Albumin/Globulin Ratio 1.3 % Lipase 64 H (13-60) units/L HCG, Qual Negative (Negative) Urine Color (Yellow) Urine Turbidity (Clear) Urine pH (5.0-7.0) Ur Specific [place] (1.003-1.030) Urine Protein (Negative) mg/dL Urine Glucose (UA) (Negative) mg/dL Urine Ketones (Negative) mg/dL Urine Blood (Negative) Urine Nitrite (Negative) Urine Bilirubin (Negative) Urine Urobilinogen (<2.0) mg/dL Ur Leukocyte Esterase (Negative) Urine WBC (Auto) (0.0-6.0) /HPF Urine RBC (Auto) (0.0-6.0) /HPF U Epithel Cells (Auto) (0-13.0) /HPF Urine Bacteria (Auto) (Negative) /HPF Urine Mucus /HPF Urine Opiates Screen Urine Methadone Screen Ur Barbiturates Screen Ur Phencyclidine Scrn Ur Amphetamines Screen U Benzodiazepines Scrn Urine Cocaine Screen U Marijuana (THC) Screen Drugs of Abuse Note 04/02/21 04/02/21 Range/Units Unknown Unknown WBC (4.5-11.0) K/mm3 RBC (3.65-5.03) M/mm3 Hgb (10.1-14.3) gm/dl Hct (30.3-42.9) % MCV (79-97) fl MCH (28-32) pg MCHC (30-34) % RDW (13.2-15.2) % Plt Count (140-440) K/mm3 Lymph % (Auto) (13.4-35.0) % [place] % (Auto) (0.0-7.3) % Eos % (Auto) (0.0-4.3) % Baso % (Auto) (0.0-1.8) % Lymph # (Auto) (1.2-5.4) K/mm3 [place] # (Auto) (0.0-0.8) K/mm3 Eos # (Auto) (0.0-0.4) K/mm3 Baso # (Auto) (0.0-0.1) K/mm3 Seg Neutrophils % (40.0-70.0) % Seg Neutrophils # (1.8-7.7) K/mm3 Sodium (137-145) mmol/L Potassium (3.6-5.0) mmol/L Chloride (98-107) mmol/L Carbon Dioxide (22-30) mmol/L Anion Gap mmol/L BUN (7-17) mg/dL Creatinine (0.6-1.2) mg/dL Estimated GFR ml/min BUN/Creatinine Ratio % Glucose (65-100) mg/dL Calcium (8.4-10.2) mg/dL Total Bilirubin (0.1-1.2) mg/dL AST (5-40) units/L ALT (7-56) units/L Alkaline Phosphatase (35-129) units/L Total Protein (6.3-8.2) g/dL Albumin (3.9-5) g/dL Albumin/Globulin Ratio % Lipase (13-60) units/L HCG, Qual (Negative) Urine Color [place] (Yellow) Urine Turbidity Slightly-cloudy (Clear) Urine pH 5.0 (5.0-7.0) Ur Specific [place] 1.039 H (1.003-1.030) Urine Protein 100 mg/dl (Negative) mg/dL Urine Glucose (UA) Neg (Negative) mg/dL Urine Ketones 80 (Negative) mg/dL Urine Blood Neg (Negative) Urine Nitrite Neg (Negative) Urine Bilirubin Neg (Negative) Urine Urobilinogen 2.0 (<2.0) mg/dL Ur Leukocyte Esterase Neg (Negative) Urine WBC (Auto) 5.0 (0.0-6.0) /HPF Urine RBC (Auto) 8.0 (0.0-6.0) /HPF U Epithel Cells (Auto) 28.0 H (0-13.0) /HPF Urine Bacteria (Auto) 2+ (Negative) /HPF Urine Mucus 3+ /HPF Urine Opiates Screen Negative Urine Methadone Screen Negative Ur Barbiturates Screen Negative Ur Phencyclidine Scrn Negative Ur Amphetamines Screen Negative U Benzodiazepines Scrn Negative Urine Cocaine Screen Negative U Marijuana (THC) Screen Negative Drugs of Abuse Note Disclamer - Radiology Data Radiology results: report reviewed CT ABDOMEN AND PELVIS WITH CONTRAST INDICATION / CLINICAL INFORMATION: Acute epigastric pain. TECHNIQUE: Axial CT images were obtained through the abdomen and pelvis after Omnipaque 300, [address] scans at this location are performed using CT dose reduction for ALARA by means of automated exposure control. COMPARISON: None available. FINDINGS: LOWER CHEST: No significant abnormality. LIVER: No significant abnormality. GALLBLADDER: No significant abnormality. BILE DUCTS: No significant abnormality. PANCREAS: No significant abnormality. SPLEEN: No significant abnormality. ADRENALS: No significant abnormality. RIGHT KIDNEY / URETER: No significant abnormality. LEFT KIDNEY / URETER: No significant abnormality. STOMACH / SMALL BOWEL: No significant abnormality. COLON: No significant abnormality. APPENDIX: Nonvisualized. PERITONEUM: No free fluid. No free air. No fluid collection. LYMPH NODES: No significant adenopathy. VASCULAR STRUCTURES: No significant abnormality. URINARY BLADDER: No significant abnormality. REPRODUCTIVE ORGANS: No significant abnormality. ADDITIONAL FINDINGS: None. SKELETAL SYSTEM: No significant abnormality. IMPRESSION: Negative for obstruction or localized inflammation. Signer Name: Clint Jeffers MD Signed: 04/02/2021 1:36 PM Workstation Name: [id number] - Medical Decision Making 26-year-old female patient presents with complaints of nausea and vomiting x3 days. She states she was seen at an urgent care yesterday and given IV Zofran, GI cocktail, and discharged home with oral Zofran. She states the oral Zofran is not helping with her symptoms. She denies any hematemesis/coffee-ground emesis, melena/hematochezia, diarrhea, fever/chills/sweats, urinary symptoms, cough, shortness of breath, or chest pain. Past medical history includes a uterine tumor per patient, she states she is unsure if it is cancerous or benign. She is not currently following with a primary care provider. She also denies any alcohol use or history of PUD/GERD On exam, patient has moderate to severe epigastric pain without rebound or guarding. Belly is soft and nondistended. Count mildly elevated at 13 on CBC. No significant abnormalities noted on CMP, lipase, or UA. CT abdomen is negative for any acute findings. Patient is nontachycardic and afebrile. She is tolerating juice orally without vomiting. Will DC home with treatment for gastritis. Recommend follow-up with PCP in 3 days, and GI if needed. Referrals provided. Discussed lab findings, presumptive diagnosis, care plan, and signs and symptoms that should prompt immediate return to emergency department in detail patient verbalizes understanding. Critical care attestation.: If time is entered above; I have spent that time in minutes in the direct care of this critically ill patient, excluding procedure time. ED Disposition Clinical Impression: Nausea & vomiting Disposition: 01 HOME / SELF CARE / HOMELESS Is pt being admited?: No Condition: Stable Instructions: Nausea and Vomiting, Adult, Viral Gastroenteritis, Adult Prescriptions: Promethazine HCl [Promethazine TAB] 12.5 mg PO [id number] PRN #8 tab PRN Reason: Nausea Referrals: [facility] [Provider Group] - 3-5 Days [facility] [Provider Group] - 2-3 Days
[2021-04-02 11:25] LABS: Basophils % (Auto) 0.1 % (0.0-1.8); Hematocrit 41.4 % (30.3-42.9); Hemoglobin 13.5 gm/dl (10.1-14.3); Lymphocytes # (Auto) 1.9 K/mm3 (1.2-5.4); Lymphocytes % (Auto) 14.6 % (13.4-35.0); Mean Corpuscular HGB Conc 33 % (30-34); Mean Corpuscular Volume 85 fl (79-97); Monocytes # (Auto) 0.6 K/mm3 (0.0-0.8); Monocytes % (Auto) 4.4 % (0.0-7.3); Platelet Count 537 K/mm3 (140-440); Red Blood Count 4.85 M/mm3 (3.65-5.03); Red Cell Distribution Width 15.7 % (13.2-15.2)
[2021-04-02 11:28] LABS: Alanine Aminotransferase 6 units/L (7-56); Blood Urea Nitrogen 14 mg/dL (7-17); Calcium 10.1 mg/dL (8.4-10.2); Hemolysis Index 3
[2021-04-02 11:29] LABS: BUN/Creatinine Ratio 28
[2021-04-02 12:09] LABS: Bacteria,Urine 2+ /HPF (Negative); Bilirubin,Urine NEG (Negative); Blood,Urine NEG (Negative); Color,Urine Amber (Yellow); Mucus,Urine 3+ /HPF
[2021-04-02 12:10] LABS: Amphetamine Screen,Urine Negative; Benzodiazepines Screen,Urine Negative; Cannabinoid Screen,Urine Negative; Cocaine Screen,Urine Negative; Methadone Screen,Urine Negative; Opiate Screen,Urine Negative
[2021-04-02] MEDS ORDERED: ONDANSETRON 4 MG/2 ML INJ IV ONE (13:27)
--- NOTE | 2021-04-02 13:41 | Cat Scan Report ---
CT ABDOMEN AND PELVIS WITH CONTRAST INDICATION / CLINICAL INFORMATION: Acute epigastric pain. TECHNIQUE: Axial CT images were obtained through the abdomen and pelvis after Omnipaque 300, 100 cc I V contrast. All CT scans at this location are performed using CT dose reduction for ALARA by means o f automated exposure control. COMPARISON: None available. FINDINGS: LOWER CHEST: No significant abnormality. LIVER: No significant abnormality. GALLBLADDER: No significant abnormality. BILE DUCTS: No significant abnormality. PANCREAS: No significant abnormality. SPLEEN: No significant abnormality. ADRENALS: No significant abnormality. RIGHT KIDNEY / URETER: No significant abnormality. LEFT KIDNEY / URETER: No significant abnormality. STOMACH / SMALL BOWEL: No significant abnormality. COLON: No significant abnormality. APPENDIX: Nonvisualized. PERITONEUM: No free fluid. No free air. No fluid collection. LYMPH NODES: No significant adenopathy. VASCULAR STRUCTURES: No significant abnormality. URINARY BLADDER: No significant abnormality. REPRODUCTIVE ORGANS: No significant abnormality. ADDITIONAL FINDINGS: None. SKELETAL SYSTEM: No significant abnormality. IMPRESSION: Negative for obstruction or localized inflammation. Signer Name: Clint Jeffers MD Signed: 04/02/2021 1:36 PM Workstation Name: [id number]
[2021-04-02] MEDS ORDERED: LIDOCAINE VISCOUS 2% 15 ML ORAL LIQD PO ONE (14:22)
[2021-04-02] MEDS ORDERED: DICYCLOMINE 10 MG/5 ML ORAL LIQD PO ONE (14:22)
[2021-04-02] MEDS ORDERED: ALUM-MAG HYDROXIDE-SIMETHICONE 200-200-20MG/5ML ORAL LIQD 30 ML PO ONE (14:22)
[2021-04-02] MEDS ORDERED: PANTOPRAZOLE 40 MG INJ IV ONE (14:56)
[2021-04-02 15:42] VITALS: BP 127/88
== END 2021-04-02 15:41 | disposition home or self-care (01) ==
LOC: ED 09:09
DX: R11.2 Nausea with vomiting, unspecified (principal); I10 Essential (primary) hypertension; Z91.018 Allergy to other foods
CPT/HCPCS: 36415; 74177; 80053; 80307; 81001; 83690; 84703; 85025; 96361; 96374; 96375; 99284; C9113; J1200; J2405; J2765; J7030; Q9967

== ENCOUNTER 2021-07-09 08:25 | Emergency (ER) | payer MEDICAID ==
[2021-07-09] MEDS ORDERED: HALOPERIDOL LACTATE 5 MG/1 ML INJ IM ONE (10:09)
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
[2021-07-09 11:02] VITALS: BP 92/67
[2021-07-09] MEDS ORDERED: LORazepam 2 MG/ML VIAL IM ONE (11:18)
== END 2021-07-10 06:49 | disposition home or self-care (01) ==
LOC: ED 08:25
DX: F41.9 Anxiety disorder, unspecified (principal); R10.9 Unspecified abdominal pain; I10 Essential (primary) hypertension; Z91.018 Allergy to other foods; Z79.899 Other long term (current) drug therapy; Y04.8XXA Assault by other bodily force, initial encounter; Y93.89 Activity, other specified; Y92.89 Other specified places as the place of occurrence of the external cause; Y99.8 Other external cause status
CPT/HCPCS: 96372; 99283; J1630; J2060